=== PATIENT | female | born 1965 | race Hispanic/Latino ===

== ENCOUNTER 2017-08-17 15:00 | Outpatient (CLI) | payer OTHER | END 2017-08-17 15:01 | disposition home or self-care (01) | LOC: BICRAD 15:00 | PROVIDERS: ATTEND Specialist | DX: M25.561 Pain in right knee (principal) ==

== ENCOUNTER 2017-10-06 12:32 | Outpatient (CLI) | payer OTHER ==
--- NOTE | 2017-10-06 15:11 | MRI ---
MRI OF RIGHT KNEE PERFORMED WITHOUT CONTRAST ENHANCEMENT: Date: 10/06/17 HISTORY: Knee pain for 3-4 months. FINDINGS: Anterior and posterior cruciate ligaments are intact. There is a small free edge tear involving the junction of the posterior horn and body region of the l ateral meniscus. There is a large root tear involving the posterior horn of the medial meniscus. There is internal sig nal change within the posterior horn and body compatible with mucoid degeneration. There is prominent meniscal protrusion related to loss of hoop strength. The body of the meniscus is protruded by 5 mm. The medial and lateral collateral ligaments, and iliotibial band regions are unremarkable. Patellar articular cartilage shows some articular cartilage loss involving the medial facet and apex of the patella. Medial and lateral patellar retinaculum and quadriceps and patellar tendons are alondra l. There is marked arthritic change of the medial compartment of the knee with marked articular cartilag e loss. There is a Rapp's cyst which is partially ruptured. IMPRESSION: 1. 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 2. Small free edge radial tear involving junction of posterior horn and body of the lateral meniscus . 3. Large root tear involving the posterior horn of the medial meniscus. There is also prominent inte rnal mucoid degeneration of the meniscus with meniscal subluxation related to loss of hoop strength a nd marked medial compartment narrowing. 4. Partially ruptured Rapp's cyst. POS: [facility]
== END 2017-10-06 12:33 | disposition home or self-care (01) ==
LOC: MRI 12:32
PROVIDERS: ATTEND Specialist
DX: M25.561 Pain in right knee (principal); M66.0 Rupture of popliteal cyst; M23.221 Derangement of posterior horn of medial meniscus due to old tear or injury, right knee; M23.251 Derangement of posterior horn of lateral meniscus due to old tear or injury, right knee

== ENCOUNTER 2017-11-01 10:25 | Outpatient (CLI) | payer OTHER | END 2017-11-01 10:26 | disposition home or self-care (01) | LOC: BICMAMMO 10:25 | PROVIDERS: ATTEND Specialist | DX: Z12.31 Encounter for screening mammogram for malignant neoplasm of breast (principal); Z00.00 Encounter for general adult medical examination without abnormal findings; Z79.899 Other long term (current) drug therapy | CPT/HCPCS: 77063; 77067 ==

== ENCOUNTER 2018-05-20 19:31 | Emergency (ER) | payer OTHER ==
[2018-05-20] MEDS ORDERED: diphenhydrAMINE 50 MG/ML VIAL ONE (19:58)
[2018-05-20] MEDS ORDERED: Metoclopramide HCl 10 MG/2 ML VIAL ONE (19:58)
[2018-05-20] MEDS ORDERED: Ketorolac Tromethamine 30 MG/ML VIAL ONE (20:38)
== END 2018-05-20 21:35 | disposition home or self-care (01) ==
LOC: ERS 19:31
DX: R11.2 Nausea with vomiting, unspecified (principal); R19.7 Diarrhea, unspecified; R51 Headache; E78.5 Hyperlipidemia, unspecified; I10 Essential (primary) hypertension; Z79.899 Other long term (current) drug therapy
CPT/HCPCS: 96361; 96374; 96375; J1200; J1885; J2765

== ENCOUNTER 2018-05-22 23:55 | Emergency (ER) | payer OTHER | END 2018-05-23 00:30 | disposition home or self-care (01) | LOC: ERS 23:55 | DX: G25.81 Restless legs syndrome (principal); E78.5 Hyperlipidemia, unspecified; I10 Essential (primary) hypertension; Z79.899 Other long term (current) drug therapy | CPT/HCPCS: 99283 ==

== ENCOUNTER 2018-11-23 15:45 | Outpatient (CLI) | payer OTHER | END 2018-11-23 15:46 | disposition home or self-care (01) | LOC: DTY/OP 15:45 | PROVIDERS: ATTEND Specialist | DX: Z01.818 Encounter for other preprocedural examination (principal); E66.01 Morbid (severe) obesity due to excess calories | CPT/HCPCS: 97802 ==

== ENCOUNTER 2019-01-01 15:52 | Outpatient (CLI) | payer OTHER | END 2019-01-01 15:53 | disposition home or self-care (01) | LOC: DTY/OP 15:52 | PROVIDERS: ATTEND Specialist | DX: Z01.818 Encounter for other preprocedural examination (principal); E66.01 Morbid (severe) obesity due to excess calories | CPT/HCPCS: 97802 ==

== ENCOUNTER 2023-06-13 09:59 | Outpatient (CLI) | payer OTHER | END 2023-06-13 10:00 | disposition home or self-care (01) | LOC: BICRAD 09:59 | PROVIDERS: ATTEND Specialist | DX: M25.511 Pain in right shoulder (principal); M19.011 Primary osteoarthritis, right shoulder; W19.XXXA Unspecified fall, initial encounter ==

== ENCOUNTER 2023-08-21 07:21 | Emergency (ER) | payer OTHER | END 2023-08-21 07:50 | disposition home or self-care (01) | LOC: ERS 07:21 | DX: L03.116 Cellulitis of left lower limb (principal); L03.115 Cellulitis of right lower limb; E78.5 Hyperlipidemia, unspecified; I10 Essential (primary) hypertension; Z79.899 Other long term (current) drug therapy | CPT/HCPCS: 99283 ==